=== PATIENT | male | born 1990 | race Native Hawaiian/Other Pacific Islander ===

== ENCOUNTER 2020-07-31 02:56 | Emergency (ER) | payer OTHER ==
[~2020-07-31] VITALS: Ht 185.4 cm; Wt 127.0 kg
[2020-07-31 03:39] LABS: PLATELET COUNT 306 K/uL (142-355)
[2020-07-31 05:12] VITALS: BP 141/86; TEMP 98.1
== END 2020-07-31 05:13 | disposition home or self-care (01) ==
LOC: ED 02:56
PROVIDERS: Emergency Medicine
DX: N20.1 Calculus of ureter (principal)
CPT/HCPCS: 36415; 80053; 81000; 85027; 96372; 99283; J1885